=== PATIENT | female | born 2000 | race Caucasian/White ===

== ENCOUNTER 2022-04-20 10:09 | Emergency (ER) | payer OTHER ==
[~2022-04-20] VITALS: Ht 165.1 cm; Wt 75.3 kg
[2022-04-20 10:23] VITALS: BP 134/102
--- NOTE | 2022-04-20 10:30 | NUR ---
FLU, COVID SWABS DONE.
[2022-04-20] MEDS ORDERED: IBUPROFEN 600 MG TAB PO ONE (12:25)
--- NOTE | 2022-04-20 12:39 | NUR ---
PO MEDS GIVEN-NADR
[2022-04-20] MEDS ORDERED: PROM118S5 PO (13:39)
[2022-04-20] MEDS ORDERED: IBUP-2213 PO (13:39)
[2022-04-20] MEDS ORDERED: ACET-10509 PO (13:39)
--- NOTE | 2022-04-20 14:05 | NUR ---
21 y/o female bib self with c/o sore throat, fever and cough x 2 days. Patient denies any sick contacts. Patient has been taking Dayquil with little relief. Medical History: Denies NKDA
--- NOTE | 2022-04-20 14:07 | NUR ---
Patient discharged with v/s stable. Written and verbal after care instructions given. Patient alert, oriented and verbalized understanding of instructions. Ambulatory with steady gait. All questions addressed prior to discharge. ID band removed. Patient advised to follow up with PMD. Rx of Acetminophen, Ibuprofen and Promethazine-DM given. Opportunity to ask questions provided and answered. WORK NOTE HANDED TO PATIENT.
--- NOTE | 2022-04-20 14:10 | NUR ---
Chart checked and completed. The patient's care was reviewed and supervised by Sultana Pineda RN.
== END 2022-04-20 14:07 | disposition home or self-care (01) ==
LOC: MED 10:09
DX: U07.1 COVID-19 (principal); Z79.899 Other long term (current) drug therapy; Z79.1 Long term (current) use of non-steroidal anti-inflammatories (NSAID)
CPT/HCPCS: 99283